=== PATIENT | male | born 2000 | race Caucasian/White ===

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

== ENCOUNTER → 2021-01-24 19:24 | Outpatient (CLI) | payer BC, MEDICAID, SELFPAY | PROVIDERS: Visit Provider Nurse Practitioner Family | DX: Z20.822 Contact with and (suspected) exposure to COVID-19 (principal) | CPT/HCPCS: C9803; U0003; U0005 ==

== ENCOUNTER 2021-02-08 20:37 | Emergency (ER) | payer MEDICAID, SELFPAY ==
[2021-02-08 20:38] VITALS: BP 131/90; PULSE 80; RESP 16; TEMP 36.8; O2SAT 100; BMI 26.6
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
--- NOTE | 2021-02-08 20:46 | PC.NURSE ---
cleared cervical neck, c collar removed @ this time
[2021-02-08 20:59] VITALS: BP 131/90; PULSE 80; RESP 16; TEMP 36.8; O2SAT 99
== END 2021-02-08 21:01 | disposition home or self-care (01) ==
PROVIDERS: Emergency Provider Emergency Medicine; PCP Emergency Medicine
DX: S16.1XXA Strain of muscle, fascia and tendon at neck level, initial encounter (principal); V47.0XXA Car driver injured in collision with fixed or stationary object in nontraffic accident, initial encounter; Y92.488 Other paved roadways as the place of occurrence of the external cause
CPT/HCPCS: 99282

== ENCOUNTER → 2021-05-08 08:50 | Outpatient (CLI) | payer MEDICAID, SELFPAY ==
[2021-05-09 06:40] LABS: Covid-19 Nasal PCR Sendout Lex NOT DETECTED
== END ==
PROVIDERS: Visit Provider Nurse Practitioner
DX: Z20.822 Contact with and (suspected) exposure to COVID-19 (principal)
CPT/HCPCS: C9803; U0004; U0005

== ENCOUNTER 2021-07-21 17:49 | Emergency (ER) | payer MEDICAID, SELFPAY ==
[2021-07-21 17:50] VITALS: BP 121/76; PULSE 83; RESP 16; TEMP 36.7; O2SAT 98; BMI 28.1
--- NOTE | 2021-07-21 18:56 | HMH.EDALLER ---
ED Disposition Clinical Impression: Allergic reaction Qualifiers: Encounter type: initial encounter Qualified Code(s): T78.40XA - Allergy, unspecified, initial encounter Disposition: Home, Self-Care Condition on Discharge: Good Instructions: DI for Eye Allergic Reaction Prescriptions: methylPREDNISolone [Medrol 4mg tab] 4 mg PO DIRECTED #21 tab Transmission Status: Pending to [id number] Referrals: Evgeny Mcgrath MD [Primary Care Provider] - - Critical Care Critical Care Time: No Attestation: On 07/21/21, the high probability of a clinically significant, sudden or life threatening deterioration of the following system(s) required my full and direct attention, intervention and personal management. The time I documented below is in addition to time spent performing reported procedures but includes the following listed in this critical care notation. Medical Decision Making - Medical Records Medical records reviewed: Yes: I reviewed the patient's medical records. - Ilia Inquiry Pt receiving controlled substance: No Vital Signs: 07/21/21 17:50 Temperature 98.0 F Temperature Source Oral Pulse Rate [Right] 83 Respiratory Rate 16 Blood Pressure [Right Arm] 121/76 Blood Pressure Mean [Right Arm] 91 Blood Pressure Source [Right Arm] Automatic Cuff Blood Pressure Position [Right Arm] Sitting 02 Sat by Pulse Oximetry 98 Oxygen Delivery Method Room Air Orders (Tests/Meds): ED MEDICATIONS Generic Name Dose Route Start Last Admin Trade Name Freq PRN Reason Stop Dose Admin Sodium Chloride 1,000 mls @ 999 mls/hr 07/21/21 18:15 07/21/21 18:24 Sod Chlor 0.9% 1000ml Bag IV 07/21/21 19:15 999 mls/hr .Q1H1M JOSE R Administration Sodium Chloride 8 ml 07/21/21 18:01 Sodium Chloride 0.9% 10ml Vial IV 08/20/21 18:00 NEEDED PRN dilute pepcid Discontinued Medications Generic Name Dose Route Start Last Admin Trade Name Freq PRN Reason Stop Dose Admin Dexamethasone Sodium Phosphate 10 mg 07/21/21 18:01 07/21/21 18:23 Dexamethasone 4mg/Ml 5ml Mdv IV 07/21/21 18:02 10 mg ONCE ONE Administration Diphenhydramine HCl 25 mg 07/21/21 18:01 07/21/21 18:23 Diphenhydramine 50mg/Ml Vial IV 07/21/21 18:02 25 mg ONCE ONE Administration Famotidine 20 mg 07/21/21 18:01 07/21/21 18:23 Famotidine 20mg/2ml Vial IV 07/21/21 18:02 20 mg ONCE ONE Administration - Reevaluation(s) Time: 18:59 Reevaluation #1: On reevaluation, the patient is feeling much better. There is no evidence of airway compromise. No angioedema. Patient tolerating oral intake. Patient be discharged with short course steroids. He is to follow-up with PCP in 48 hours. Given strict return precautions. Verbalized understanding. Medical Decision Narrative: 21-year-old male presented to the emergency department with some facial swelling. Patient's findings are consistent with allergic conjunctivitis. Patient is some periorbital swelling but is consistent with just edema. There is no evidence of erythema, no preseptal or septal cellulitis. I did perform eye examination which did not show any abnormalities. Eyelid eversion did not show any foreign bodies or abscesses. Patient be treated symptomatically reevaluated. Allergic React/Insect Bite HPI - General Chief complaint: Allergic Reaction Stated complaint: possible allergic reaction Time Seen by Provider: 07/21/21 17:55 Mode of Arrival - ED Triage: Ambulatory Limitations: No Limitations - History of Present Illness HPI narrative: 21-year-old male presented to the emergency department possible allergic reaction. The patient states that he was out fishing yesterday when he started getting some fullness in his face. He states that he woke up today and had some swelling around his eyes. He states that his eyelids are mildly swollen. He feels like his eyes are red. Is not having any change in vision, however th
[2021-07-21 19:00] VITALS: BP 111/64; PULSE 55; O2SAT 99
[2021-07-21 19:04] VITALS: BP 111/64; PULSE 70; RESP 16; O2SAT 99
--- NOTE | 2021-07-21 19:04 | PC.NURSE ---
Assessed pt at this time. Advising he was feeling better. No new needs at this time.
[2021-07-21 19:12] VITALS: BP 119/78; PULSE 70; RESP 16; TEMP 36.8; O2SAT 98
== END 2021-07-21 19:57 | disposition home or self-care (01) ==
PROVIDERS: Emergency Provider Emergency Medicine; PCP Emergency Medicine
DX: T78.40XA Allergy, unspecified, initial encounter (principal); H10.33 Unspecified acute conjunctivitis, bilateral; F41.9 Anxiety disorder, unspecified; J45.909 Unspecified asthma, uncomplicated
CPT/HCPCS: 96365; 96375; 99284

== ENCOUNTER 2021-11-23 13:47 | Emergency (ER) | payer MEDICAID, SELFPAY ==
[2021-11-23 14:09] VITALS: BP 143/80; PULSE 57; RESP 18; TEMP 36.9; O2SAT 100; BMI 28.2
--- NOTE | 2021-11-23 14:29 | HMH.EDUTC ---
[facility] Disposition Clinical Impression: Parotiditis, Jaw pain Disposition: Home, Self-Care Condition on Discharge: Good Instructions: Parotitis, DI for Parotitis-Adult Additional Instructions: Drink plenty of fluids. Take tylenol or ibuprofen for pain or fever. Take the medications as directed. Follow up with your regular doctor. GO TO THE ER FOR ANY WORSENING SYMPTOMS Prescriptions: Amoxicillin/Potassium Clav [Amox-Clav 875-125 mg Tablet] 1 tab PO BID #20 tab Transmission Status: Received by [id number] methylPREDNISolone [Medrol] 4 mg PO DIRECTED 6 Days #21 packet Transmission Status: Received by [id number] Referrals: Evgeny Mcgrath MD [Primary Care Provider] - Forms: Work/School Release Time of Disposition: 14:44 Medical Decision Making - Medical Records Medical records reviewed: No: I reviewed the patient's medical records. - Ilia Inquiry Pt receiving controlled substance: No Vital Signs: 11/23/21 14:09 11/23/21 14:31 11/23/21 14:49 Temperature 98.5 F 98.5 F 98.5 F Temperature Source Oral Oral Pulse Rate 60 Pulse Rate [Left Radial] 57 L 60 Respiratory Rate 18 18 18 Blood Pressure 143/80 H Blood Pressure [Left Arm] 143/80 H 143/80 H Blood Pressure Mean [Left Arm] 101 101 Blood Pressure Source [Left Arm] Automatic Cuff Blood Pressure Position [Left Arm] Sitting 02 Sat by Pulse Oximetry 100 100 Oxygen Delivery Method Room Air - Lab Data Lab results reviewed: Yes: I reviewed the patient's lab results. [facility] HPI - General Stated complaint: LT Jaw Pain Time Seen by Provider: 11/23/21 14:29 Mode of Arrival: Ambulatory Source of Information: Patient Limitations: No Limitations Description of Symptoms (Recalled from Triage Doc. by RN): Pt c/o L jaw pain x2 days. Pt states no known injury. Pt reports pain in up near his ear in jaw area. Pt denies dental pain. - History of Present Illness Provider Complaint: He states that for the past 2 days he has had left jaw pain. He denies that he has had any dental pain. He has a sore throat and he has felt bad also, but he denies any fever or chills. - Related Data Previous Rx's Medication Instructions Recorded venlafaxine 75 mg capsule,extended 75 mg PO DAILY #30 cap 11/01/20 release 24 hr ondansetron 4 mg disintegrating 4 mg PO Q6H PRN #30 tab 01/24/21 tablet methylPREDNISolone [Medrol 4mg 4 mg PO DIRECTED #21 tab 07/21/21 tab] Amoxicillin/Potassium Clav 1 tab PO BID #20 tab 11/23/21 [Amox-Clav 875-125 mg Tablet] methylPREDNISolone [Medrol] 4 mg PO DIRECTED 6 Days #21 11/23/21 packet Allergies Allergy/AdvReac Type Severity Reaction Status Date / Time No Known Allergies Allergy Verified 11/23/21 14:34 [facility] History - Hepatitis A Screen Attestation statement:: This patient has been screened for Hepatitis A risk factors. I have reviewed the patient's past medical history: Yes Medical History: Reports:: Anxiety, Asthma Denies:: Diabetes Mellitus Type 1, Diabetes Mellitus Type 2 Laterality Cases: Bilateral: Myringotomy (Ear Tubes), Tonsillectomy, Other Other Surgeries: Yes: No Previous Surgery, Other Amputation: No Fractures: Yes Comment: Wrist left with screw. - Social History Smoking Status: Never smoker Tobacco Type: cigarettes, smokeless tobacco Alcohol Intake: never Alcohol Intake Frequency:: other Substance Use Type: denies use Occupational Status: other Housing: house Household Members: family - Psychiatric History Pschychiatric History:: Reports:: Anxiety Family Hx:: Cancer ROS Obtained: Yes All systems reviewed & no additional complaints - Constitutional Constitutional: Denies chills, Denies fever(s), Reports poor appetite, Reports malaise - Eyes Eyes: Denies eye discharge - ENT Ears, Nose, Mouth, and Throat: Reports as per HPI - Cardiovascular Cardiovascular: Denies chest pain - Respiratory Respiratory: Den
[2021-11-23 14:31] VITALS: BP 143/80; PULSE 60; RESP 18; TEMP 36.9; O2SAT 100; BMI 28.1
[2021-11-23 14:49] VITALS: BP 143/80; PULSE 60; RESP 18; TEMP 36.9
== END 2021-11-23 14:56 | disposition home or self-care (01) ==
PROVIDERS: Emergency Provider Nurse Practitioner Family; PCP Emergency Medicine
DX: K11.21 Acute sialoadenitis (principal)

== ENCOUNTER 2021-12-04 02:38 | Emergency (ER) | payer MEDICAID, SELFPAY ==
[2021-12-04 02:41] VITALS: BP 139/78; PULSE 89; RESP 16; TEMP 38.8; O2SAT 99; BMI 27.3
[2021-12-04 02:43] VITALS: BMI 27.4
[2021-12-04 03:03] LABS: Influenza A, PCR Not Detected (NotDetected); Influenza B, PCR Not Detected (NotDetected); Microscopic, Urine URINE MICROSCOPIC (MICROSCOPIC)
[2021-12-04 03:04] LABS: Basophils # 0.1 K/mm3 (0-0.2); Basophils % 1.7 % (0.1-2.0); Eosinophils # 0.1 K/mm3 (0.0-0.4); Eosinophils % 1.6 % (0.1-12.0); Hematocrit 46.4 % (42.0-52.0); Hemoglobin 15.3 g/dL (14.1-18.0); Lymphocytes # 0.9 K/mm3 (0.7-4.5); Lymphocytes % 18.4 % (10-50); Mean Corpuscular HGB Conc 32.9 g/dL (31.8-35.4); Mean Corpuscular Hemoglobin 27.4 pg (27.0-31.2); Mean Corpuscular Volume 83.3 fl (80-94); Mean Platelet Volume 9.3 fl (7.4-10.4); Monocytes # 0.3 K/mm3 (0.1-1.0); Monocytes % 6.5 % (1.7-9.3); Neutrophils # 3.3 K/mm3 (1.8-7.8); Neutrophils % 71.8 % (37.0-80.0); Platelet Count 158 K/mm3 (142-424); Red Blood Count 5.57 M/mm3 (4.60-6.20); Red Cell Distribution Width 13.5 % (11.5-17.5); White Blood Count 4.6 K/mm3 (4.5-13.0)
[2021-12-04 03:09] LABS: Appearance,Urine CLEAR (Clear); Bilirubin,Urine Negative (Negative); Blood, Urine TRACE-L (Negative); Color,Urine YELLOW (Yellow); Glucose,Urine (UA) Negative (Negative); Ketones,Urine Negative (Negative); Leukocyte Esterase,Urine Negative (Negative); Nitrate,Urine Negative (Negative); Protein,Urine TRACE (Negative); Specific Gravity, Urine 1.025 (1.005-1.030); Urobilinogen,Urine 0.2 EU/dl (0.2)
[2021-12-04 03:11] LABS: Amorphous Sediment,Urine Trace /lpf; Squamous Epithelial Cell,Urine Occasional #/hpf (0-5)
[2021-12-04 03:15] LABS: Amylase 68 U/L (30-110)
[2021-12-04 03:16] LABS: Alanine Aminotransferase 26 U/L (12-78); Albumin Level 4.1 g/dl (3.5-5.0); Albumin/Globulin Ratio 1.6 (1.1-1.8); Alkaline Phosphatase 46 U/L (38-126); Aspartate Amino Transferase 32 U/L (17-59); Bilirubin,Total 0.2 mg/dl (0.2-1.3); Blood Urea Nitrogen 11 mg/dl (9-20); Calcium 8.6 mg/dl (8.4-10.2); Carbon Dioxide 24 mmol/L (22.0-30.0); Chloride 106 mmol/L (98-107); Creatinine Clearance Estimated 101 mL/min (50-200); Estimated Glomerular Filt Rate 77 ml/min (>60); GFR (African American) 93 ML/MIN (>60); Globulin 2.5 g/dL (1.3-3.2); Glucose 136 mg/dl (74-100); Lactic Acid 0.8 mmol/L (0.7-2.1); Lipase 194 U/L (23-300); Sodium 138 mmol/L (136-145); Total Protein,Serum 6.6 g/dl (6.3-8.2)
[2021-12-04 03:21] LABS: C-Reactive Protein 20.5 mg/L (0-4)
[2021-12-04 03:23] LABS: Anion Gap 11.5 mEq/L (5-15); Potassium 3.5 mmoL/L (3.5-5.1)
[2021-12-04 03:34] LABS: Procalcitonin 0.115 ng/mL (0.0-2.0)
[2021-12-04 03:35] LABS: Coronavirus 19, PCR Detected (NotDetected); Erythrocyte Sedimentation Rate 1 mm/hr (0-15)
[2021-12-04 03:50] VITALS: PULSE 92; RESP 16; TEMP 37.7; O2SAT 97
--- NOTE | 2021-12-04 03:55 | XR_ITS ---
PROCEDURE INFORMATION: Exam: XR Chest Exam date and time: 12/04/2021 4:03 AM Age: 21 years old Clinical indication: Sternal or substernal pain; Additional info: Chest pain TECHNIQUE: Imaging protocol: Radiologic exam of the chest. Views: 2 views. COMPARISON: CR CXR2V XR chest 2V 11/22/2017 9:19 AM FINDINGS: Lungs: Unremarkable. No consolidation. Pleural spaces: Unremarkable. No pleural effusion. No pneumothorax. Heart/Mediastinum: Unremarkable. No cardiomegaly. Bones/joints: Unremarkable. IMPRESSION: No acute findings.
--- NOTE | 2021-12-04 04:05 | PC.NURSE ---
pt's temperature has decreased to 99.0 orally. However, he now has developed cough and would like that checked out. CXR ordered.
--- NOTE | 2021-12-04 04:11 | HMH.EDURI ---
Discharge Plan Disposition Patient Disposition: Home, Self-Care Condition: Good Chief Complaint: Upper Respiratory Infection Prescriptions Prescriptions: No Action No Known Home Medications Referrals Follow up/Referrals: Evgeny Mcgrath MD [Primary Care Provider] - See instructions Clinical Impressions Clinical Impression: COVID-19 Instructions Patient Instructions: DI for COVID-19 (Suspected or Confirmed ) Discharge ED Provider: Evgeny Mcgrath URI/Sore Throat HPI General Chief Complaint: Upper Respiratory Infection Stated Complaint: MCBRIDE,Vomiting,disorinated Time Seen by Provider: 12/04/21 04:11 Mode of Arrival: Ambulatory Source of Information: Patient and Medical Record Limitations: No Limitations Description of Symptoms (Recalled from ER Triage Doc. by RN): PT STATES HE HAS BEEN IN [place] AND CAME BACK AND STARTED FEELING BAD, WITH FEVER, GENERALIZED ACHES AND HEADACHE. PT HAS NOT TAKEN TYLENOL OR MOTRIN SINCE YESTERDAY AT 1600 History of Present Illness HPI Narrative: aching and fever with headache since yesterday Complaint: cough and sore throat Onset (ago): day(s) Duration: constant Severity: moderate Associated symptoms: denies other symptoms Treatments prior to arrival: acetaminophen Related Data Home Medications Medication Instructions Recorded Confirmed No Known Home Medications 12/04/21 12/04/21 Allergies Allergy/AdvReac Type Severity Reaction Status Date / Time No Known Allergies Allergy Verified 11/23/21 14:34 PFSH PFSH Social History Smoking Status: Never smoker alcohol intake: never substance use type: denies use current occupational status: other household members: family housing: house ROS Obtained: Yes All systems reviewed & no additional complaints except as documented Physical Exam General General appearance: alert Head Head exam: normocephalic Eye Eye exam: Present PERRL and EOMI ENT ENT exam: Present normal exam Neck Neck exam: Present full ROM Respiratory Respiratory exam: Present normal lung sounds bilaterally Cardiovascular Cardiovascular exam: Present regular rate Abdominal Exam Abdominal exam: Present soft Extremities Exam Extremities exam: Present full ROM Neurological Exam Neurological exam: Present alert, oriented X3 and CN II-XII intact Psychiatric Psychiatric exam: Present normal affect Skin Skin exam: Absent rash Medical Decision Making Medical Records Medical records reviewed: Yes I reviewed the patient's medical records. Ilia Inquiry Pt receiving controlled substance: No Vital Signs: 12/04/21 02:41 12/04/21 03:50 12/04/21 04:16 Temperature 101.8 F H 99.8 F H Temperature Source Oral Oral Pulse Rate 92 H 67 Pulse Rate [Left Radial] 89 Respiratory Rate 16 16 Blood Pressure 122/76 Blood Pressure [Right Arm] 139/78 Blood Pressure Mean 86 Blood Pressure Mean [Right Arm] 98 Blood Pressure Source [Right Arm] Automatic Cuff Blood Pressure Position [Right Arm] Sitting 02 Sat by Pulse Oximetry 99 97 97 Oxygen Delivery Method Room Air Room Air Room Air 12/04/21 04:45 Temperature Temperature Source Pulse Rate 59 L Pulse Rate [Left Radial] Respiratory Rate Blood Pressure 121/68 Blood Pressure [Right Arm] Blood Pressure Mean Blood Pressure Mean [Right Arm] Blood Pressure Source [Right Arm] Blood Pressure Position [Right Arm] 02 Sat by Pulse Oximetry 98 Oxygen Delivery Method Room Air Lab Data Lab results reviewed: Yes I reviewed the patient's lab results. Lab Results 12/04/21 02:43: ESR 1 12/04/21 02:43: C-Reactive Protein 20.5 H, Amylase 68, Procalcitonin 0.115 12/04/21 02:43: SARS-CoV-2 (PCR) Detected A, Influenza A Untype (PCR) Not detected, Influenza Type B (PCR) Not detected 12/04/21 02:43: Urine Color Yellow, Urine Appearance Clear, Urine pH 6.0, Ur Specific Brantley 1.025, Urine Protein Trace, Urine Glucose (UA) Negative, Urine Ketones Negative
[2021-12-04 04:16] VITALS: BP 122/76; PULSE 67; O2SAT 97
[2021-12-04 04:45] VITALS: BP 121/68; PULSE 59; O2SAT 98
[2021-12-04 05:00] VITALS: BP 121/68; PULSE 88; RESP 16; TEMP 37.3; O2SAT 100
== END 2021-12-04 05:12 | disposition home or self-care (01) ==
PROVIDERS: Emergency Provider Emergency Medicine; PCP Emergency Medicine
DX: U07.1 COVID-19 (principal)
CPT/HCPCS: 71046; 80053; 81001; 82150; 83605; 83690; 84145; 85025; 85651; 86140; 96361; 96374; 96375; 99283; C9803; J2405; U0003; U0005

== ENCOUNTER → 2021-12-26 06:39 | Outpatient (CLI) | payer MEDICAID, SELFPAY ==
[2021-12-26 20:42] LABS: Basophils # 0.1 K/mm3 (0-0.2); Basophils % 2.6 % (0.1-2.0); Eosinophils # 0.1 K/mm3 (0.0-0.4); Eosinophils % 1.6 % (0.1-12.0); Hematocrit 43.8 % (42.0-52.0); Hemoglobin 14.2 g/dL (14.1-18.0); Lymphocytes # 1.6 K/mm3 (0.7-4.5); Lymphocytes % 29.1 % (10-50); Mean Corpuscular HGB Conc 32.5 g/dL (31.8-35.4); Mean Corpuscular Hemoglobin 27.1 pg (27.0-31.2); Mean Corpuscular Volume 83.3 fl (80-94); Mean Platelet Volume 20.7 fl (7.4-10.4); Monocytes # 0.4 K/mm3 (0.1-1.0); Monocytes % 6.5 % (1.7-9.3); Neutrophils # 3.4 K/mm3 (1.8-7.8); Neutrophils % 62.8 % (37.0-80.0); Platelet Count 225 K/mm3 (142-424); Red Blood Count 5.26 M/mm3 (4.60-6.20); White Blood Count 5.5 K/mm3 (4.5-13.0)
[2021-12-26 22:10] LABS: Alanine Aminotransferase 37 U/L (12-78); Albumin Level 4.2 g/dl (3.5-5.0); Albumin/Globulin Ratio 1.8 (1.1-1.8); Alkaline Phosphatase 54 U/L (38-126); Anion Gap 13.2 mEq/L (5-15); Aspartate Amino Transferase 31 U/L (17-59); Blood Urea Nitrogen 9 mg/dl (9-20); Calcium 8.7 mg/dl (8.4-10.2); Carbon Dioxide 30 mmol/L (22.0-30.0); Chloride 103 mmol/L (98-107); Chol/HDL Ratio 5.1 (1-3.5); Cholesterol 142 mg/dl (140-200); Estimated Glomerular Filt Rate 85 ml/min (>60); GFR (African American) 103 ML/MIN (>60); Globulin 2.3 g/dL (1.3-3.2); Glucose 84 mg/dl (74-100); HDL Cholesterol 28 mg/dl (40-60); Potassium 4.2 mmoL/L (3.5-5.1); Sodium 142 mmol/L (136-145); Total Protein,Serum 6.5 g/dl (6.3-8.2); Triglycerides 144 mg/dl (30-150); VLDL Cholesterol 29 mg/dL (0-40)
[2021-12-26 22:12] LABS: Bilirubin,Total 0.1 mg/dl (0.2-1.3)
== END ==
PROVIDERS: PCP Family Medicine; Visit Provider Family Medicine
DX: R69 Illness, unspecified (principal)
CPT/HCPCS: 80053; 80061; 85025

== ENCOUNTER 2022-07-23 11:45 | Emergency (ER) | payer BC, MEDICAID, SELFPAY ==
[2022-07-23 11:46] VITALS: BP 138/88; PULSE 64; RESP 16; TEMP 36.6; O2SAT 97; BMI 26.6
[2022-07-23 11:57] VITALS: BP 138/77; PULSE 54; O2SAT 100
--- NOTE | 2022-07-23 12:00 | XR_ITS ---
FINAL REPORT CLINICAL HISTORY: fall, right wrist pain FINDINGS: RIGHT WRIST Two views were obtained. There is no acute fracture or dislocation. The joint spaces appear normal. No soft tissue abnormality is identified. IMPRESSION: No acute process. Reviewed, Interpreted and Dictated by Bassam Ayesr III, MD Transcribed by Katherine Gama Authenticated and [facility]
--- NOTE | 2022-07-23 12:00 | XR_ITS ---
FINAL REPORT CLINICAL HISTORY: fall, right hand pain FINDINGS: RIGHT HAND Three views demonstrate no acute fracture or dislocation. The visualized joint spaces are normally aligned. The soft tissues are unremarkable. IMPRESSION: No acute bony abnormality. Reviewed, Interpreted and Dictated by Bassam Ayers III, MD Transcribed by Katherine Gama Authenticated and . [facility]
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
[2022-07-23 13:45] VITALS: BP 132/70; PULSE 60; RESP 18; TEMP 36.7; O2SAT 99
== END 2022-07-23 13:50 | disposition home or self-care (01) ==
PROVIDERS: Emergency Provider Emergency Medicine; PCP Emergency Medicine
DX: S63.501A Unspecified sprain of right wrist, initial encounter (principal); S60.221A Contusion of right hand, initial encounter; X58.XXXA Exposure to other specified factors, initial encounter; F17.290 Nicotine dependence, other tobacco product, uncomplicated
CPT/HCPCS: 73100; 73130; 99283; 99284

== ENCOUNTER 2022-12-10 06:23 | Emergency (ER) | payer SELFPAY ==
[2022-12-10 06:26] VITALS: BP 115/79; PULSE 67; RESP 16; TEMP 36.7; O2SAT 100; BMI 29.0
--- NOTE | 2022-12-10 06:44 | HMH.EDGENADL ---
Discharge Plan Disposition Patient Disposition: Home, Self-Care Condition: Good Prescriptions Prescriptions: New prednisone 50 mg tablet 50 mg PO DAILY 5 Days Qty: 5 0RF hydroxyzine pamoate [Vistaril] 25 mg capsule 25 mg PO TID PRN (Reason: itching) Qty: 20 0RF No Action No Known Home Medications Referrals Follow up/Referrals: Evgeny Mcgrath MD [Primary Care Provider] - See instructions Activity Restrictions/Add. Instructions Additional Instructions/Restrictions: Please follow-up with your primary care provider. Please return to the emergency department if you develop any new or worsening symptoms or become concerned for your health. Please take steroids as prescribed starting tomorrow. You were given today's dose in ER. Please take Vistaril as needed for itching. Recommend following up with a desizing machine operator head end if possible. Please return if you develop shortness of breath or throat swelling. Clinical Impressions Clinical Impression: Acute idiopathic urticaria, Facial swelling Discharge ED Provider: Jose A Gomez Adult HPI General Chief complaint: Allergic Reaction Stated complaint: Allergic reaction does not know what to Time Seen by Provider: 12/10/22 06:35 Mode of Arrival: Ambulatory Source of Information: Patient Limitations: No Limitations Description of Symptoms (Recalled from ER Triage Doc. by RN): 22 M presents from home after waking up with worsening periorbital edema. States he woke up 9/3 with swelling to his left elbow and a little swelling to his eyes which had been itchy prior to going to bed. Patient denies difficulty breathing, fever, chills. Obvious swelling to bilateral eyes. No angioedema present. Airway patent. Several hives noted to back of upper arms. History of Present Illness HPI narrative: 22 M presents from home after waking up with worsening periorbital edema. States he woke up 9/3 with swelling to his left elbow and a little swelling to his eyes which had been itchy prior to going to bed. Patient denies difficulty breathing, fever, chills. Obvious swelling to bilateral eyes. No angioedema present. Airway patent. Several hives noted to back of upper arms. 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 Reports that this happened once before and it resolved within about a week with steroids. Related Data Home Medications Medication Instructions Recorded Confirmed No Known Home Medications 12/10/22 12/10/22 Previous Rx's Medication Instructions Recorded hydroxyzine pamoate 25 mg capsule 25 mg PO TID PRN itching #20 caps 12/10/22 (Vistaril) prednisone 50 mg tablet 50 mg PO DAILY 5 days #5 tabs 12/10/22 Allergies Allergy/AdvReac Type Severity Reaction Status Date / Time No Known Allergies Allergy Verified 12/26/21 15:12 [facility] Disclaimer: The information contained in this section may have been updated after the patient was seen, as this information can be updated by other users. Medical History (Updated 12/10/22 @ 06:43 by Jose A Gomez MD) No significant past medical history Surgical History (Updated 12/10/22 @ 06:40 by Carlos Alberto Ozuna, RN) No history of previous surgery Family History (Updated 12/10/22 @ 06:40 by Carlos Alberto Ozuna, RN) Other No significant family history Social History Smoking Status: Never smoker alcohol intake: current substance use type: denies use current occupational status: other Travel in the last 8 weeks: Inside the [place] household members: family housing: house ROS Obtained: Yes All systems reviewed & no additional complaints except as documented Physical Exam General General appearance: alert and in no apparent distress Head Head exam: atraumatic and other (Periorbital edema and bilateral cheek and forehead swelling noted) Eye Eye exam:
[2022-12-10 06:49] VITALS: BP 115/69; PULSE 63; RESP 16; TEMP 36.7; O2SAT 99
== END 2022-12-10 06:49 | disposition home or self-care (01) ==
PROVIDERS: Emergency Provider Emergency Medicine; PCP Emergency Medicine
DX: H05.223 Edema of bilateral orbit (principal); L50.9 Urticaria, unspecified
CPT/HCPCS: 99283

== ENCOUNTER 2022-12-11 16:13 | Emergency (ER) | payer SELFPAY ==
[2022-12-11 16:40] VITALS: BP 135/75; PULSE 67; RESP 18; TEMP 36.8; O2SAT 100; BMI 29.7
--- NOTE | 2022-12-11 16:57 | EXP.UTC ---
Discharge Plan Disposition Patient Disposition: Home, Self-Care Condition: Good Prescriptions Prescriptions: New methylprednisolone 4 mg Tablets,Dose Pack 4 mg PO DIRECTED Qty: 21 0RF Discontinued prednisone 50 mg tablet 50 mg PO DAILY 5 Days Qty: 5 0RF hydroxyzine pamoate [Vistaril] 25 mg capsule 25 mg PO TID PRN (Reason: itching) Qty: 20 0RF Referrals Follow up/Referrals: Evgeny Mcgrath MD [Primary Care Provider] - See instructions Activity Restrictions/Add. Instructions Additional Instructions/Restrictions: Try to identify and avoid contact with the offending substance. Don't start the oral steroids until tomorrow. Continue the otc diphenhydramine (benedryl) that you have been taking already. It will make you drowsy, so don't drive or operate heavy machinery after taking it. Follow up with your regular doctor. GO TO THE ER FOR ANY WORSENING SYMPTOMS OR CONCERNS If you have already picked up the steroids (prednisone) that was prescribed by the ER, then please don't take them with the steroids (methylprednisone) that we prescribed today. Clinical Impressions Clinical Impression: Acute idiopathic urticaria Stand Alone Forms Stand Alone Forms: Work/School Release Instructions Patient Instructions: DI for General Allergic Reactions, Methylprednisolone, Methylprednisolone Injection Discharge ED Provider: Ean Gomez [facility] General Stated complaint: POSSIBLE ALLERGIC REACTION Time Seen by Provider: 12/11/22 16:57 History of Present Illness Provider Complaint: He states that for the past 3 days he has had swelling of his face around his eyes and an itchy rash on his right forearm. He was in the ER last night for this same complaint, but he did not get the medications from the pharmacy. He denies any swelling of his mouth, lips, or throat. He denies any chest pain or shortness of breath. Related Data Previous Rx's Medication Instructions Recorded methylprednisolone 4 mg tablets in 4 mg PO DIRECTED #21 tabs 12/11/22 a dose pack Allergies Allergy/AdvReac Type Severity Reaction Status Date / Time No Known Allergies Allergy Verified 12/11/22 17:04 [facility] Disclaimer: The information contained in this section may have been updated after the patient was seen, as this information can be updated by other users. Medical History (Updated 12/11/22 @ 17:54 by Ean Gomez APRN) No significant past medical history Surgical History No history of previous surgery Family History Other No significant family history Social History Smoking Status: Never smoker alcohol intake: current substance use type: denies use current occupational status: other Travel in the last 8 weeks: Inside the [place] household members: family housing: house ROS Obtained: Yes All systems reviewed & no additional complaints except as documented Constitutional Constitutional: Denies chills and Denies fever(s) Eyes Eyes: Denies eye discharge ENT Ears, Nose, Mouth, and Throat: Denies dizziness, Denies otalgia and Denies sore throat Cardiovascular Cardiovascular: Denies chest pain Respiratory Respiratory: Denies shortness of breath, Denies chest congestion, Denies cough, Denies stridor and Denies wheezing Gastrointestinal Gastrointestingal: Denies nausea or vomiting Musculoskeletal Musculoskeletal: Reports system reviewed and no additional complaints, except as documented and Denies arthralgias Integumentary/Breasts Skin/Breast: Reports as per HPI and Reports rash Neurologic Neurologic: Denies dizziness and Denies paresthesias Allergic/Immunologic Allergic/Immunologic: Denies wheezing Physical Exam General General appearance: alert and in no apparent distress Head Head exam: atraumatic, normocephal
[2022-12-11 18:02] VITALS: BP 135/75; PULSE 67; RESP 18; TEMP 36.8; O2SAT 100
== END 2022-12-11 18:02 | disposition home or self-care (01) ==
PROVIDERS: Emergency Provider Nurse Practitioner Family; PCP Emergency Medicine
DX: L50.1 Idiopathic urticaria (principal)
CPT/HCPCS: 96372; 99212; 99214; G0463

== ENCOUNTER 2023-05-28 13:09 | Emergency (ER) | payer SELFPAY ==
[2023-05-28 13:50] VITALS: PULSE 78; RESP 12; TEMP 36.8; O2SAT 96; BMI 29.7
--- NOTE | 2023-05-28 14:16 | ED_ITS ---
Discharge Plan Disposition Patient Disposition: Home, Self-Care Condition: Good Prescriptions Prescriptions: New ibuprofen [IBU] 800 mg tablet 800 mg PO Q8HP PRN (Reason: Moderate Pain) Qty: 30 0RF [id number]-[id number] [Bromfed DM] 2-30-10 mg/5 mL Syrup 5 ml PO Q6H PRN (Reason: Cough) Qty: 240 0RF ondansetron 4 mg Tablet,Disintegrating 4 mg PO Q8H PRN (Reason: Nausea) Qty: 12 0RF Referrals Follow up/Referrals: Joe Mtz DO [Primary Care Provider] - See instructions Activity Restrictions/Add. Instructions Additional Instructions/Restrictions: Drink plenty of fluids. Take tylenol or ibuprofen for pain or fever. Take the medications as directed. Follow up with your regular doctor. GO TO THE ER FOR ANY WORSENING SYMPTOMS Clinical Impressions Clinical Impression: Acute viral syndrome Stand Alone Forms Stand Alone Forms: Work/School Release Instructions Patient Instructions: DI for Viral Syndrome Discharge ED Provider: Ean Gomez [facility] General Stated complaint: sore throat, vomitting,headache Mode of Arrival: Ambulatory Source of Information: Patient Limitations: No Limitations Time Seen by Provider: 05/28/23 14:15 Description of Symptoms (Recalled from Triage Doc. by RN): Pt's symptoms are MCBRIDE, chills, fever, sore throat, nausea, and vomiting. HEENT Symptoms (Recalled from RN notes): Yes Resp Symptoms (Recalled from RN notes): No Skin Symptoms (Recalled from RN notes): No MS Symptoms (Recalled from RN notes): No Functional Status (Recalled from RN notes): n/a History of Present Illness Provider Complaint: He states that he has had MCBRIDE, chills, fever, sore throat, nausea, and vomiting for the past 1 day. Related Data Previous Rx's Medication Instructions Recorded qayoyutchubyftk-mqfhmmwysayeobk-HH 5 ml PO Q6H PRN Cough #240 mL 05/28/23 2 mg-30 mg-10 mg/5 mL oral syrup (Bromfed DM) ibuprofen 800 mg tablet (IBU) 800 mg PO Q8HP PRN Moderate Pain 05/28/23 #30 tabs ondansetron 4 mg disintegrating 4 mg PO Q8H PRN Nausea #12 tabs 05/28/23 tablet Allergies Allergy/AdvReac Type Severity Reaction Status Date / Time No Known Allergies Allergy Verified 05/28/23 14:07 Worker's Comp Is this a Worker's Comp case?: No [facility] Disclaimer: The information contained in this section may have been updated after the patient was seen, as this information can be updated by other users. Medical History (Updated 05/28/23 @ 14:33 by Ean Gomez APRN) No significant past medical history Surgical History No history of previous surgery Family History Other No significant family history Social History Smoking Status: Never smoker alcohol intake: current substance use type: denies use current occupational status: other Travel in the last 8 weeks: Inside the [place] household members: family housing: house ROS Obtained: Yes All systems reviewed & no additional complaints except as documented Constitutional Constitutional: Reports chills and Reports fever(s) Eyes Eyes: Denies eye discharge ENT Ears, Nose, Mouth, and Throat: Reports as per HPI Cardiovascular Cardiovascular: Denies chest pain Respiratory Respiratory: Denies chest congestion and Reports cough Gastrointestinal Gastrointestingal: Reports nausea; Denies abdominal pain, constipation, cramping, diarrhea or vomiting Musculoskeletal Musculoskeletal: Denies arthralgias Integumentary/Breasts Skin/Breast: Denies rash Neurologic Neurologic: Denies paresthesias Physical Exam General General appearance: alert and in no apparent distress Eye Eye exam: Present normal appearance, PERRL and EOMI ENT ENT exam: Present mucous membranes moist and normal external ear exam Expanded ENT Exam External ear exam: Present normal external inspection TM/Canal exam: Bilateral TM: erythema and bulging Nose exam: Absent sinus tenderness Nasal speculum exam: Bilateral: normal Mouth exam: Present normal external inspection; Absent drooling Teeth exam: Present normal inspection Throat exam: Present tonsillar erythema and tonsillomegaly Neck Neck exam: Present normal inspection, full ROM and trachea midline; Absent tenderness, lymphadenopathy or thyromegaly Chest Chest inspection: Present normal inspection and symmetric chest wall rise; Absent tenderness or rash Respiratory Respiratory exam: Present normal lung sounds bilaterally; Absent respiratory distress, wheezes, stridor or accessory muscle use Cardiovascular Cardiovascular exam: Present regular rate, normal rhythm and normal heart sounds Abdominal Exam Abdominal exam: Present soft; Absent distention, tenderness, guarding, rebound or rigidity Extremities Exam Extremities exam: Present normal inspection, full ROM and normal capillary refill; Absent tenderness or calf tenderness Back Exam Back exam: Present normal inspection and full ROM; Absent tenderness Neurological Exam Neurological exam: Present alert and oriented X3 Psychiatric Psychiatric exam: Present normal affect and normal mood Skin Skin exam: Present warm, dry, intact and normal color Lymphatic Lymphatic Findings: no adenopathy Medical Decision Making Medical Records Medical records reviewed: No I reviewed the patient's medical records. Ilia Inquiry Pt receiving controlled substance: No Vital Signs: 05/28/23 13:50 Temperature 98.3 F Temperature Source Oral Pulse Rate [Right Radial] 78 Respiratory Rate 12 02 Sat by Pulse Oximetry 96 Oxygen Delivery Method Room Air Lab Data Lab results reviewed: Yes I reviewed the patient's lab results.
[2023-05-28 14:36] LABS: UTC Influenza A Antigen Negative (Negative); UTC Strep Screen (Rapid) Negative (Negative)
[2023-05-28 14:37] LABS: UTC Influenza B Antigen Negative (Negative)
[2023-05-28 14:38] LABS: Coronavirus 19, PCR Not Detected (NotDetected); Influenza A, PCR Not Detected (NotDetected); Influenza B, PCR Not Detected (NotDetected)
[2023-05-28 14:53] VITALS: BP 0/0; PULSE 78; RESP 12; TEMP 36.8; O2SAT 96
== END 2023-05-28 14:53 | disposition home or self-care (01) ==
PROVIDERS: Emergency Provider Nurse Practitioner Family; PCP Internal Medicine
DX: R51.9 Headache, unspecified (principal); R11.2 Nausea with vomiting, unspecified; R07.0 Pain in throat; R50.9 Fever, unspecified; B34.9 Viral infection, unspecified
CPT/HCPCS: 87636; 87804; 87880; 99212; 99214; G0463

== ENCOUNTER 2023-07-29 08:42 | Emergency (ER) | payer SELFPAY ==
[2023-07-29 09:25] VITALS: BP 126/70; PULSE 58; RESP 20; TEMP 36.8; O2SAT 100; BMI 29.4
[2023-07-29 09:39] LABS: UTC Strep Screen (Rapid) Negative (Negative)
--- NOTE | 2023-07-29 09:49 | EXP.UTC ---
Discharge Plan Disposition Patient Disposition: Home, Self-Care Condition: Good Prescriptions Prescriptions: New ondansetron 4 mg tablet,disintegrating 4 mg PO Q8H PRN (Reason: nausea and vomiting) Qty: 12 0RF No Action ibuprofen [IBU] 800 mg tablet 800 mg PO Q8HP PRN (Reason: Moderate Pain) Qty: 30 0RF ylayurveousciux-zjivyglhl-WB [Bromfed DM] 2-30-10 mg/5 mL Syrup 5 ml PO Q6H PRN (Reason: Cough) Qty: 240 0RF ondansetron 4 mg Tablet,Disintegrating 4 mg PO Q8H PRN (Reason: Nausea) Qty: 12 0RF Referrals Follow up/Referrals: Joe Mtz DO [Primary Care Provider] - See instructions Activity Restrictions/Add. Instructions Additional Instructions/Restrictions: Drink extra fluids with and between meals. If you have difficulty drinking, try very small amounts of water or suck on ice chips. ? Avoid fruit juices, as these do not replace minerals and can actually increase diarrhea. ? Children and adults can use sports drinks to replenish electrolytes. Younger children and infants should use products formulated for children, like oral rehydration solutions. ? Eat food in small amounts and let your stomach recover. ? Get lots of rest. You may feel tired or weak. ? No greasy or fried foods for the next 24-48 hours BRAT diet Bananas Rice Apples and Tarina ? Make sure to drink plenty of liquids ? Return if needed ? Straight to ER if any life threatening symptoms ? Zofran as prescribed ? Follow up with family doctor in the next 48-72 hours if no improvement or any worsening of symptoms Clinical Impressions Clinical Impression: Nausea and vomiting Stand Alone Forms Stand Alone Forms: Work/School Release Instructions Patient Instructions: Nausea and Vomiting-Adult, Sore Throat Discharge ED Provider: Karen Israel [facility] General Stated complaint: vomiting Mode of Arrival: Ambulatory Source of Information: Patient Limitations: No Limitations Time Seen by Provider: 07/29/23 09:49 Description of Symptoms (Recalled from Triage Doc. by RN): PATIENT C/O VOMITING, SORE THROAT AND HEADACHE THAT STARTED THIS MORNING HEENT Symptoms (Recalled from RN notes): Yes Resp Symptoms (Recalled from RN notes): No Skin Symptoms (Recalled from RN notes): No MS Symptoms (Recalled from RN notes): No Functional Status (Recalled from RN notes): WNL History of Present Illness Provider Complaint: Patient states that he was around sister last week that had a stomach bug States he woke up this morning with N/V sore throat and a slight headache States wasnt sure if he may have had strep or he caught her stomach bug Related Data Previous Rx's Medication Instructions Recorded nfvfxqwuvsopjbi-qcoztzduyvftowg-PQ 5 ml PO Q6H PRN Cough #240 mL 05/28/23 2 mg-30 mg-10 mg/5 mL oral syrup (Bromfed DM) ibuprofen 800 mg tablet (IBU) 800 mg PO Q8HP PRN Moderate Pain 05/28/23 #30 tabs ondansetron 4 mg disintegrating 4 mg PO Q8H PRN Nausea #12 tabs 05/28/23 tablet ondansetron 4 mg disintegrating 4 mg PO Q8H PRN nausea and 07/29/23 tablet vomiting #12 tabs Allergies Allergy/AdvReac Type Severity Reaction Status Date / Time No Known Allergies Allergy Verified 05/28/23 14:07 Worker's Comp Is this a Worker's Comp case?: No [facility] Disclaimer: The information contained in this section may have been updated after the patient was seen, as this information can be updated by other users. Medical History (Updated 07/29/23 @ 09:53 by Karen Israel APRN) Asthma Surgical History (Updated 07/29/23 @ 09:37 by Jazmyn Muhammad RN) H/O left wrist surgery History of tympanostomy tube placement History of tonsillectomy Family History Other No significant family history Social History Smoking Status: Never smoker alcohol intake: current substance use type: denies use current occupational status: other Travel in the last 8 weeks: [place] the [place] household members: family housing: house ROS Obtained: Yes All systems reviewed & no additional complaints except as documented and Yes Systems reviewed as appropriate & no additional complaints except as documented Constitutional Constitutional: Reports system reviewed and no additional complaints, except as documented, Reports as per HPI and Reports headache(s) ENT Ears, Nose, Mouth, and Throat: Reports system reviewed and no additional complaints, except as documented, Reports as per HPI, Reports headache(s) and Reports sore throat Cardiovascular Cardiovascular: Reports system reviewed and no additional complaints, except as documented and Reports as per HPI Respiratory Respiratory: Reports system reviewed and no additional complaints, except as documented and Reports as per HPI Gastrointestinal Gastrointestingal: Reports system reviewed and no additional complaints, except as documented, as per HPI, diarrhea (x 1), nausea and vomiting; Denies abdominal pain Neurologic Neurologic: Reports headache(s) Physical Exam General General appearance: alert and in no apparent distress ENT ENT exam: Present mucous membranes moist Expanded ENT Exam Throat exam: Present normal inspection Respiratory Respiratory exam: Present normal lung sounds bilaterally; Absent respiratory distress or wheezes Cardiovascular Cardiovascular exam: Present regular rate, normal rhythm and normal heart sounds Abdominal Exam Abdominal exam: Present soft and normal bowel sounds; Absent distention or tenderness Neurological Exam Neurological exam: Present alert, oriented X3 and normal gait Medical Decision Making Ilia Inquiry Pt receiving controlled substance: No Ilia was queried for this patient: No Vital Signs: 07/29/23 09:25 Temperature 98.2 F Temperature Source Oral Pulse Rate [Left Brachial] 58 L Respiratory Rate 20 Blood Pressure [Left Arm] 126/70 Blood Pressure Mean [Left Arm] 88 Blood Pressure Source [Left Arm] Automatic Cuff Blood Pressure Position [Left Arm] Sitting 02 Sat by Pulse Oximetry 100 Oxygen Delivery Method Room Air Lab Data Lab results reviewed: Yes I reviewed the patient's lab results. Lab Results 07/29/23 09:31: Strep Scn Rapid Clinic Negative Orders (Tests/Meds): ORDERS Category Date Time Status Strep Screen Confirmation Stat Micro 07/29/23 09:31 Received
[2023-07-29 09:58] VITALS: BP 126/70; PULSE 58; RESP 20; TEMP 36.8; O2SAT 100
== END 2023-07-29 10:02 | disposition home or self-care (01) ==
PROVIDERS: Emergency Provider Nurse Practitioner; PCP Internal Medicine
DX: R11.2 Nausea with vomiting, unspecified (principal); R51.9 Headache, unspecified
CPT/HCPCS: 87880; 99212; 99214; G0463

== ENCOUNTER 2024-09-14 18:33 | Emergency (ER) | payer OTHER, SELFPAY ==
[2024-09-14 18:42] VITALS: BP 156/92; PULSE 60; RESP 18; TEMP 36.6; O2SAT 100; BMI 28.0
--- OUTSIDE RECORDS SUMMARY | 2024-09-14 18:42 | XMS_ITS | Clinical Summary ---
Author Organization Healthcare Address [address] [place] [address] Care Team Providers Care Forest Resource Specialist Name Role Phone Evgeny Mcgrath MD Primary Care Provider [phone] Social History Tobacco Use Types Packs/Day Years Used Date Smoking Tobacco: Passive Smo ke Exposure - Never Smoker Sex and Gender Information Value Date Recorded Sex Assigned at Not on file Legal Sex Male 6:41 PM EDT Gender Identity Not on file Sexual Orientation Not on file Last Filed Vital Signs Vital Sign Reading Time Taken Comments Blood Pressure - - Pulse - - Temperature - - Respiratory Rate - - Oxygen Saturation - - Inhaled Oxygen Concentration - - Weight 65 kg (143 lb 4.8 oz) 05/24/2015 2:33 PM EST Height 162.5 cm (5' 3.98 ) 05/24/2015 2:33 PM ES T Body Mass Index 24.62 05/24/2015 2:33 PM EST Plan of Treatment Not on file Care Teams Forest Resource Specialist Relationship Specialty Start Date End Date Evgeny Mcgrath MD [id number] [id number] PCP - General 08/19/20
--- NOTE | 2024-09-14 18:45 | ED_ITS ---
Discharge Plan Disposition Patient Disposition: Home, Self-Care Prescriptions Prescriptions: New ondansetron 4 mg tablet,disintegrating 4 mg PO Q8H 7 Days Qty: 21 0RF No Action ibuprofen [IBU] 800 mg tablet 800 mg PO Q8HP PRN (Reason: Moderate Pain) Qty: 30 0RF mvjdreraytnrfev-vnoqixqvr-DZ [Bromfed DM] 2-30-10 mg/5 mL Syrup 5 ml PO Q6H PRN (Reason: Cough) Qty: 240 0RF ondansetron 4 mg Tablet,Disintegrating 4 mg PO Q8H PRN (Reason: Nausea) Qty: 12 0RF ondansetron 4 mg tablet,disintegrating 4 mg PO Q8H PRN (Reason: nausea and vomiting) Qty: 12 0RF Referrals Follow up/Referrals: Joe Mtz DO [Primary Care Provider, Internal Medicine] - See instructions Activity Restrictions/Add. Instructions Additional Instructions/Restrictions: Use the lidocaine to help numb the pain. Take Zofran as needed for nausea. Continue Tylenol and ibuprofen as instructed by your dentist. Call the dentist for further pain if needed. Clinical Impressions Clinical Impression: Toothache Nausea and vomiting Qualifiers: Vomiting type: unspecified Qualified Code(s): R11.2 - Nausea with vomiting, unspecified Instructions Patient Instructions: DI for Dental Pain Print Language Print Language: Indian Discharge ED Provider: Erwin Howard General Adult HPI <Milena Grajeda (ED), CLERK OPERATOR - Last Filed: 09/14/24 19:30> General Chief complaint: Dental/Oral Stated complaint: severe tooth pain Time Seen by Provider: 09/14/24 18:36 History of Present Illness HPI narrative: This is a 24-year-old male who presents to the ED today with complaint of right- sided dental pain. He is going to have dental work done on Saturday. He called his dentist and was told to take Tylenol and ibuprofen which he has been doing. He says that he is nauseated from the tooth pain. No other symptoms. No fevers, chills, vomiting or diarrhea he does have nausea. Related Data Previous Rx's ?Medication ?Instructions ?Recorded toenwdhhvleqfsc-cyozzupetngmqnj-FP 5 ml PO Q6H PRN Cou gh #240 mL 05/28/23 2 mg-30 mg-10 mg/5 mL oral syrup (Bromfed DM) ibuprofen 800 mg tablet (IBU) 800 mg PO Q8HP PRN Moder ate Pain 05/28/23 #30 tabs ondansetron 4 mg disintegrating 4 mg PO Q8H PRN Nausea #12 tabs 05/28/23 tablet ondansetron 4 mg disintegrating 4 mg PO Q8H PRN nausea and 07/29/23 tablet vomiting #12 tabs ondansetron 4 mg disintegrating 4 mg PO Q8H 7 days #21 tabs 09/14/24 tablet Allergies Allergy/AdvReac Type Severity Reaction Status Date / Time No Known Allergies Allergy Verified 05/28/23 14:07 [facility] <Milena Grajeda (ED), CLERK OPERATOR - Last Filed: 09/14/24 19:30> PFS Disclaimer: The information contained in this section may have been updated after the patient was seen, as this information can be updated by other users. Medical History (Updated 09/14/24 @ 18:51 by Milena Grajeda (ED), CLERK OPERATOR) Asthma Surgical History (Updated 07/29/23 @ 09:37 by Jazmyn Muhammad RN) H/O left wrist surgery History of tympanostomy tube placement History of tonsillectomy Family History Other No significant family history Social History Smoking Status: Current every day smoker tobacco type: e-cigarettes alcohol intake: current alcohol intake frequency: holidays/special occasions only substance use type: denies use current occupational status: other Travel in the last 8 weeks?: Inside the [place] household members: family housing: house Have you lived/traveled outside US in past 30 days?: No Contact w/someone who lives/traveled outside US past 30 days?: No Exposure to someone with infectious disease in past 14 days?: No Do you have a fever (greater than 100.4 F or 38 C)?: No Have you tested positive for COVID-19?: No Exposed to someone with COVID-19 in past 14 days?: No Do you have a sore throat?: No Do you have a cough?: No Do you have any weakness?: No Do you have any diarrhea?: No Are you experiencing any unusual bleeding?: No Do you have any muscle aches/pain?: No Do you have any abdominal pain?: No Are you experiencing loss of taste or smell?: No Other Medical History Have you received the Flu Vaccine for this season: No Have you received the Pneumonia Vaccine: No <Milena Hessarpitaz (ED), CLERK OPERATOR - Last Filed: 09/14/24 19:30> ROS Obtained: Yes Systems reviewed as appropriate & no additional complaints except as documented Constitutional Constitutional: Reports as per HPI Physical Exam <Milena [facility] (ED), CLERK OPERATOR - Last Filed: 09/14/24 19:30> General General appearance: alert Head Head exam: normocephalic Eye Eye exam: Present PERRL and EOMI ENT ENT exam: Present normal oropharynx and mucous membranes moist Neck Neck exam: Present full ROM and trachea midline Respiratory Respiratory exam: Present normal lung sounds bilaterally Cardiovascular Cardiovascular exam: Present regular rate, normal rhythm, normal heart sounds, +S1 and +S2 Extremities Exam Extremities exam: Present full ROM and normal capillary refill Neurological Exam Neurological exam: Present alert, oriented X3 and normal gait Skin Skin exam: Present dry and intact Medical Decision Making <Milena [facility] (ED), CLERK OPERATOR - Last Filed: 09/14/24 19:30> Medical Records Screening: Per USPSTF and CDC recommendations, given the prevalence of disease in our region, it is our hospital?s policy to screen for HIV and viral Hepatitis for all patients aged 18 and over and those with ongoing risk factors. Ilia Inquiry Pt receiving controlled substance: No Ilia was queried for this patient: No Vital Signs: 09/14/24 18:42 09/14/24 18:54 Temperature 97.9 F 97.9 F Temperature Source Oral Oral Pulse Rate 60 Pulse Rate [Radial] 60 Respiratory Rate 18 18 Blood Pressure 156/92 H Blood Pressure [Right Arm] 156/92 H Blood Pressure Mean [Right Arm] 113 Blood Pressure Source Automatic Cuff Blood Pressure Source [Right Arm] Automatic Cuff Blood Pressure Position Sitting Blood Pressure Position [Right Arm] Sitting 02 Sat by Pulse Oximetry 100 Oxygen Delivery Method Room Air Room Air Orders (Tests/Meds): ED MEDICATIONS Discontinued Medications Generic Name Dose Route Start Last Admin Trade Name Freq PRN Reason Stop Dose Admin Lidocaine HCl 15 ml 09/14/24 18:41 09/14/24 18:50 Lidocaine 2% Viscous Jackie 15ml Udc PO 09/14/24 18:42 15 ml ONCE ONE Administration Medical Decision Narrative: patient is a 24-year-old male presenting to the emergency department for evaluation of dental pain. Patient is hemodynamically stable and nontoxic- appearing upon arrival, afebrile. Differential diagnosis includes dental pain. No workup required as this is dental pain and patient does have follow-up with dentist. He is to continue with Tylenol and ibuprofen for pain call the dentist for follow-up if needed before Saturday. Patient safe for discharge. <Erwin Howard MD - Last Filed: 09/14/24 23:20> Vital Signs: 09/14/24 18:42 09/14/24 18:54 Temperature 97.9 F 97.9 F Temperature Source Oral Oral Pulse Rate 60 Pulse Rate [Radial] 60 Respiratory Rate 18 18 Blood Pressure 156/92 H Blood Pressure [Right Arm] 156/92 H Blood Pressure Mean [Right Arm] 113 Blood Pressure Source Automatic Cuff Blood Pressure Source [Right Arm] Automatic Cuff Blood Pressure Position Sitting Blood Pressure Position [Right Arm] Sitting 02 Sat by Pulse Oximetry 100 Oxygen Delivery Method Room Air Room Air Orders (Tests/Meds): ED MEDICATIONS Discontinued Medications Generic Name Dose Route Start Last Admin Trade Name Freq PRN Reason Stop Dose Admin Lidocaine HCl 15 ml 09/14/24 18:41 09/14/24 18:50 Lidocaine 2% Viscous Jackie 15ml Udc PO 09/14/24 18:42 15 ml ONCE ONE Administration Medical Decision Narrative: patient is a 24-year-old male presenting to the emergency department for evaluation of dental pain. Patient is hemodynamically stable and nontoxic- appearing upon arrival, afebrile. Differential diagnosis includes dental pain, periodontitis, periapical abscess. No workup required as this is dental pain and patient does have follow-up with dentist. He is to continue with Tylenol and ibuprofen for pain call the dentist for follow-up if needed before Saturday. Patient safe for discharge. CARLA attestation I was consulted by the CARLA, and we discussed the complexity of problems being addressed. I approved the treatment and management plan for this patient's care in the emergency department, thus performing a substantial portion of the medical decision making. Erwin Howard MD Critical Care <Milena Grajeda (ED), CLERK OPERATOR - Last Filed: 09/14/24 19:30> Critical Care Time Critical Care Time: No
[2024-09-14] MEDS: LIDOCAINE 2% VISCOUS SOL 15ML UDC 15 ML PO (18:50)
[2024-09-14 18:54] VITALS: BP 156/92; PULSE 60; RESP 18; TEMP 36.6; O2SAT 100
== END 2024-09-14 18:58 | disposition home or self-care (01) ==
PROVIDERS: Emergency Provider Student in an Organized Health Care Education/Training Program; PCP Internal Medicine
DX: R11.2 Nausea with vomiting, unspecified (principal); F17.290 Nicotine dependence, other tobacco product, uncomplicated; K08.89 Other specified disorders of teeth and supporting structures
CPT/HCPCS: 99283

== ENCOUNTER 2024-09-16 08:11 | Emergency (ER) | payer OTHER, SELFPAY ==
[2024-09-16 08:18] VITALS: BP 161/117; PULSE 87; RESP 15; TEMP 36.9; O2SAT 99; BMI 28.1
--- OUTSIDE RECORDS SUMMARY | 2024-09-16 08:21 | XMS_ITS | Clinical Summary ---
Author Organization Healthcare Address [address] [place] [address] Care Team Providers Care Metal Welder Name Role Phone Evgeny Mcgrath MD Primary Care Provider [phone] Social History Tobacco Use Types Packs/Day Years [...] of Treatment Not on file Care Teams Metal Welder Relationship Specialty Start Date End Date [facility]gr[facility] [address] [facility] [address] [facility] - [facility] 08/19/20
[2024-09-16 08:22] VITALS: BP 161/117; PULSE 87; RESP 15; TEMP 36.9; O2SAT 99
--- NOTE | 2024-09-16 08:29 | ED_ITS ---
Discharge Plan Disposition Patient Disposition: Home, Self-Care Prescriptions Prescriptions: New amoxicillin-pot clavulanate 875-125 mg tablet 1 tab PO BID 10 Days Qty: 20 0RF No Action ondansetron 4 mg tablet,disintegrating 4 mg PO Q8H 7 Days Qty: 21 0RF ibuprofen [IBU] 800 mg tablet 800 mg PO Q8HP PRN (Reason: Moderate Pain) Qty: 30 0RF qdpkurjjvuxiuvy-owjyeelqh-PA [Bromfed DM] 2-30-10 mg/5 mL Syrup 5 ml PO Q6H PRN (Reason: Cough) Qty: 240 0RF ondansetron 4 mg Tablet,Disintegrating 4 mg PO Q8H PRN (Reason: Nausea) Qty: 12 0RF ondansetron 4 mg tablet,disintegrating 4 mg PO Q8H PRN (Reason: nausea and vomiting) Qty: 12 0RF Referrals Follow up/Referrals: Provider,Referral, MD [Primary Care Provider, Medical] - See instructions Activity Restrictions/Add. Instructions Additional Instructions/Restrictions: Urgent Care Clinic REGISTRATION IS NOT A GUARANTEE OF CARE Location:?[facility], [address] [place] [address] Phone Number:?[phone] [facility] is a walk-in clinic for patients, 14 years of age and older, needing immediate care due to dental pain and swelling.?The [facility]gent [facility] is a student clinic. Patient evaluations and examinations are?carried out by dental students under the supervisions of expert [facility] dentists. Urgent Care Clinic?Registration Hours * *Clinic registration is open 7:45-10:30 am, Saturday through Saturday (closed on holidays and other dates-see below). * Patients are seen on a first come, first served basis and may experience wait times. Services are only available for a select number of patients each day.? IMPORTANT REGISTRATION NOTE:?Registration hours are subject to close early if the clinic reaches full patient capacity for the day. Important Urgent Care Clinic Facts: * IV SEDATION & NITROUS OXIDE (laughing gas) are not available treatment options[place]at the [facility]. * Procedures and provided care limited to one tooth. * No removal of impacted wisdom teeth. * No comprehensive dental treatment (restorations, root canals, crowns, dentures, etc.). * If there is no sign of acute infection or pain, you will be referred to another dental clinic to establish care.? * If, upon evaluation, the scope of the patient's needs are beyond the capabilities of the dental student providers, treatment will be referred to another clinic.? Payment Details * A $129 evaluation fee, which includes an examination and X-ray, is due upon registration for non-contracted?/ self-paid patient. * An additional payment will be required at time of service depending on treatment provided and any contracted?insurance benefits for all patient categories (including?non-contracted?/ self-paid patient). * Dentistry accepts check, money order, VISA, MasterCard, Discover, and [employer]. * Learn more [email or web address] [phone] [facility] Closure Dates *Dates are subject to change. Please check our Facebook page for closure notices.? 2024? * August 14 * August 19 * August 21 * August 26 * August 28 * August 31?? * September 02 * September 04 * September 09 * September 11 For dental emergencies when other clinic options are closed, call [phone]. Clinical Impressions Clinical Impression: Infected dental caries, Pain, dental Print Language Print Language: Korean Discharge ED Provider: Ami Mejia General Adult HPI General Chief complaint: Dental/Oral Stated complaint: tooth pain Time Seen by Provider: 09/16/24 08:14 Mode of Arrival: Ambulatory Source of Information: Patient Description of Symptoms (Recalled from ER Triage Doc. by RN): patient states he has had a toothache on right top and bottom for several days is wanting antibiotics and something for pain. cant get into dentist until october 07 History of Present Illness HPI narrative: Patient is a 24-year-old male with a history of very poor dentition and known dental caries was here a few days ago for dental pain but presents with worsening swelling and worsening pain. Has a dental appointment that has been made with his dentist but cannot get into be seen until October 07. He is here for some pain relief primarily. States that his sister had something similar and had a shot where she felt much better. Related Data Previous Rx's ?Medication ?Instructions ?Recorded tfobpvvlylwpkbo-oefqxnimanutozu-VE 5 ml PO Q6H PRN Cou gh #240 mL 05/28/23 2 mg-30 mg-10 mg/5 mL oral syrup (Bromfed DM) ibuprofen 800 mg tablet (IBU) 800 mg PO Q8HP PRN Moder ate Pain 05/28/23 #30 tabs ondansetron 4 mg disintegrating 4 mg PO Q8H PRN Nausea #12 tabs 05/28/23 tablet ondansetron 4 mg disintegrating 4 mg PO Q8H PRN nausea and 07/29/23 tablet vomiting #12 tabs ondansetron 4 mg disintegrating 4 mg PO Q8H 7 days #21 tabs 09/14/24 tablet amoxicillin 875 mg-potassium 1 tab PO BID 10 days #20 tabs 09/16/24 clavulanate 125 mg tablet Allergies Allergy/AdvReac Type Severity Reaction Status Date / Time No Known Allergies Allergy Verified 05/28/23 14:07 PFS PFS Disclaimer: The information contained in this section may have been updated after the patient was seen, as this information can be updated by other users. Medical History (Updated 09/16/24 @ 08:26 by Ami Mejia MD) Asthma Surgical History (Updated 07/29/23 @ 09:37 by Jazmyn Muhammad RN) H/O left wrist surgery History of tympanostomy tube placement History of tonsillectomy Family History Other No significant family history Social History Smoking Status: Current every day smoker tobacco type: e-cigarettes alcohol intake: current alcohol intake frequency: holidays/special occasions only substance use type: denies use current occupational status: other Travel in the last 8 weeks?: [place] the [place] household members: family housing: house Have you lived/traveled outside US in past 30 days?: No Contact w/someone who lives/traveled outside US past 30 days?: No Exposure to someone with infectious disease in past 14 days?: No Do you have a fever (greater than 100.4 F or 38 C)?: No Have you tested positive for COVID-19?: No Exposed to someone with COVID-19 in past 14 days?: No Do you have a sore throat?: No Do you have a cough?: No Do you have any weakness?: No Do you have any diarrhea?: No Are you experiencing any unusual bleeding?: No Do you have any muscle aches/pain?: No Do you have any abdominal pain?: No Are you experiencing loss of taste or smell?: No Other Medical History Have you received the Flu Vaccine for this season: No Have you received the Pneumonia Vaccine: No ROS Obtained: Yes All systems reviewed & no additional complaints except as documented Physical Exam General General appearance: alert and in no apparent distress ENT ENT exam: Present other (Extensive dental caries particularly in the mandibular molar region there is an area of significant necrotic dental caries with some soft tissue swelling surrounding this also on the maxillary canine and central incisor region there is also evidence of some dental caries that have become necrotic) Respiratory Respiratory exam: Present normal lung sounds bilaterally Cardiovascular Cardiovascular exam: Present regular rate Neurological Exam Neurological exam: Present alert and oriented X3 Medical Decision Making Medical Records Screening: Per USPSTF and CDC recommendations, given the prevalence of disease in our region, it is our hospital?s policy to screen for HIV and viral Hepatitis for all patients aged 18 and over and those with ongoing risk factors. Ilia Inquiry Pt receiving controlled substance: No Vital Signs: 09/16/24 08:18 Temperature 98.4 F Temperature Source Oral Pulse Rate [Right Radial] 87 Respiratory Rate 15 Blood Pressure [Right Arm] 161/117 H Blood Pressure Mean [Right Arm] 131 Blood Pressure Source [Right Arm] Automatic Cuff Blood Pressure Position [Right Arm] Sitting 02 Sat by Pulse Oximetry 99 Oxygen Delivery Method Room Air Orders (Tests/Meds): ORDERS Category Date Time Status HIV Combo Stat Lab 09/16/24 08:24 Ordered Hepatitis C Ab Qual. W/ RFX Stat Lab 09/16/24 08:24 Ordered Medical Decision Narrative: 24-year-old with very poor dentition with extensive dental caries and 2 areas of necrotic dental caries particular in the mandibular molar region with soft tissue swelling consistent with a probable infection. Augmentin was sent to his pharmacy. I performed an inferior alveolar block and an infraorbital block with complete pain resolution of the patient's symptoms. He has been advised to continue Tylenol and ibuprofen take his antibiotics he is also been given dental clinic walk-in information at [facility]. Patient was discharged in stable condition. Procedures Nerve Block Nerve Block 1: Time out performed: Yes Local Anesthetic: lidocaine 1% and bupivacaine 0.5% Amount of anesthesia used (mL): 3 Side: Right Intraoral Nerve Block: inferior alveolar Procedure Successful: Yes Patient Tolerated Procedure: well Complications: none Nerve Block 2: Local Anesthetic: lidocaine 1% and bupivacaine 0.5% Amount of anesthesia used (mL): 2 Side: Right Intraoral Nerve Block: supraperiosteal and other (And infraorbital) Procedure Successful: Yes Patient Tolerated Procedure: well Complications: none Critical Care Critical Care Time Critical Care Time: No
[2024-09-16 08:32] VITALS: BP 161/117; PULSE 87; RESP 15; TEMP 36.9
[2024-09-16] MEDS: LIDOCAINE 1% W/EPI 1:100,000 20ML VIAL 5 ML IM (08:37)
[2024-09-16] MEDS: BUPIVACAINE 0.5% 30ML VIAL 5 MG IM (08:37)
== END 2024-09-16 08:35 | disposition home or self-care (01) ==
PROVIDERS: Emergency Provider Student in an Organized Health Care Education/Training Program
DX: K08.89 Other specified disorders of teeth and supporting structures (principal)
CPT/HCPCS: 96372; 99283; J0665; J2004

== ENCOUNTER 2024-09-28 03:52 | Emergency (ER) | payer OTHER, SELFPAY ==
--- NOTE | 2024-09-28 03:56 | ED_ITS ---
Discharge Plan Disposition Patient Disposition: Home, Self-Care Prescriptions Prescriptions: New amoxicillin-pot clavulanate 875-125 mg tablet 1 tab PO BID 7 Days Qty: 14 0RF No Action ondansetron 4 mg tablet,disintegrating 4 mg PO Q8H 7 Days Qty: 21 0RF ibuprofen [IBU] 800 mg tablet 800 mg PO Q8HP PRN (Reason: Moderate Pain) Qty: 30 0RF idosvsnigfahhgf-mdwdiyaia-HY [Bromfed DM] 2-30-10 mg/5 mL Syrup 5 ml PO Q6H PRN (Reason: Cough) Qty: 240 0RF ondansetron 4 mg Tablet,Disintegrating 4 mg PO Q8H PRN (Reason: Nausea) Qty: 12 0RF ondansetron 4 mg tablet,disintegrating 4 mg PO Q8H PRN (Reason: nausea and vomiting) Qty: 12 0RF amoxicillin-pot clavulanate 875-125 mg tablet 1 tab PO BID 10 Days Qty: 20 0RF Activity Restrictions/Add. Instructions Additional Instructions/Restrictions: I sent additional antibiotics to continue taking if your dental pain continues. Clinical Impressions Clinical Impression: Pain, dental Print Language Print Language: Urdu Discharge ED Provider: Jose A Gomez General Adult HPI General Chief complaint: PAIN Stated complaint: Toothache Time Seen by Provider: 09/28/24 03:56 History of Present Illness HPI narrative: 24-year-old male with history of recent ED visit for dental pain presents for continued dental pain. He reports that he has been taking antibiotics and has a couple days left, but his tooth pain is starting to worsen again. He requests a dental block. He has follow-up with dentistry on October 07. Related Data Previous Rx's ?Medication ?Instructions ?Recorded lnrfharyigsafdb-vznvvxnftwayoap-WO 5 ml PO Q6H PRN Cou gh #240 mL 05/28/23 2 mg-30 mg-10 mg/5 mL oral syrup (Bromfed DM) ibuprofen 800 mg tablet (IBU) 800 mg PO Q8HP PRN Moder ate Pain 05/28/23 #30 tabs ondansetron 4 mg disintegrating 4 mg PO Q8H PRN Nausea #12 tabs 05/28/23 tablet ondansetron 4 mg disintegrating 4 mg PO Q8H PRN nausea and 07/29/23 tablet vomiting #12 tabs ondansetron 4 mg disintegrating 4 mg PO Q8H 7 days #21 tabs 09/14/24 tablet amoxicillin 875 mg-potassium 1 tab PO BID 10 days #20 tabs 09/16/24 clavulanate 125 mg tablet amoxicillin 875 mg-potassium 1 tab PO BID 7 days #14 t abs 09/28/24 clavulanate 125 mg tablet Allergies Allergy/AdvReac Type Severity Reaction Status Date / Time No Known Allergies Allergy Verified 05/28/23 14:07 [facility] Disclaimer: The information contained in this section may have been updated after the patient was seen, as this information can be updated by other users. Medical History (Updated 09/28/24 @ 03:56 by Jose A Gomez MD) Asthma Surgical History (Updated 07/29/23 @ 09:37 by Jazmyn Muhammad RN) H/O left wrist surgery History of tympanostomy tube placement History of tonsillectomy Family History Other No significant family history Social History Smoking Status: Current every day smoker tobacco type: e-cigarettes alcohol intake: current alcohol intake frequency: holidays/special occasions only substance use type: denies use current occupational status: other Travel in the last 8 weeks?: Inside the [place] household members: family housing: house Have you lived/traveled outside US in past 30 days?: No Contact w/someone who lives/traveled outside US past 30 days?: No Exposure to someone with infectious disease in past 14 days?: No Do you have a fever (greater than 100.4 F or 38 C)?: No Have you tested positive for COVID-19?: No Exposed to someone with COVID-19 in past 14 days?: No Do you have a sore throat?: No Do you have a cough?: No Do you have any weakness?: No Do you have any diarrhea?: No Are you experiencing any unusual bleeding?: No Do you have any muscle aches/pain?: No Do you have any abdominal pain?: No Are you experiencing loss of taste or smell?: No Other Medical History Have you received the Flu Vaccine for this season: No Have you received the Pneumonia Vaccine: No ROS Obtained: Yes All systems reviewed & no additional complaints except as documented Physical Exam General General appearance: alert and in no apparent distress Head Head exam: atraumatic and normocephalic Eye Eye exam: Present normal appearance, PERRL and EOMI ENT ENT exam: Present normal external ear exam and other (Numerous dental caries noted, no palpable abscess) Neck Neck exam: Present normal inspection and full ROM Chest Chest inspection: Present normal inspection and symmetric chest wall rise; Absent tenderness Respiratory Respiratory exam: Present normal lung sounds bilaterally; Absent respiratory distress Cardiovascular Cardiovascular exam: Present regular rate and normal rhythm Abdominal Exam Abdominal exam: Present soft; Absent distention, tenderness or guarding Extremities Exam Extremities exam: Present normal inspection; Absent edema or joint swelling Back Exam Back exam: Present normal inspection; Absent tenderness Neurological Exam Neurological exam: Present alert and oriented X3; Absent motor sensory deficit Psychiatric Psychiatric exam: Present normal affect and normal mood Skin Skin exam: Present warm, dry and normal color Lymphatic Lymphatic Findings: no adenopathy Medical Decision Making Medical Records Medical records reviewed: Yes I reviewed the patient's medical records. Screening: Per USPSTF and CDC recommendations, given the prevalence of disease in our region, it is our hospital?s policy to screen for HIV and viral Hepatitis for all patients aged 18 and over and those with ongoing risk factors. Ilia Inquiry Pt receiving controlled substance: No Ilia was queried for this patient: No Vital Signs: 09/28/24 03:58 09/28/24 04:16 Temperature 97.7 F 97.7 F Temperature Source Axillary Axillary Pulse Rate 60 Pulse Rate [Right] 60 Respiratory Rate 18 18 Blood Pressure 163/97 H Blood Pressure [Right Arm] 163/97 H Blood Pressure Mean [Right Arm] 119 Blood Pressure Source Automatic Cuff Blood Pressure Position Sitting 02 Sat by Pulse Oximetry 100 Oxygen Delivery Method Room Air Room Air Lab Data Lab results reviewed: Yes I reviewed the patient's lab results. Medical Decision Narrative: 24-year-old male on antibiotics for dental pain, has not been able to follow-up with dentistry yet, presents for continued pain. History was obtained via interactive discussion with patient, chart review. On arrival, patient is [afebrile, hemodynamically stable, satting appropriately, alert, oriented x4, GCS 15], moving all extremities spontaneously. Full physical exam performed and significant for dental caries, no intraoral abscess Differential includes but is not limited to dental infection, Suyapa's, Lemierre's, abscess. No evidence of emergent pathology at this time. Patient was given a dental block with resolution in pain. He was discharged with an additional prescription for antibiotics to cover him until he follows up with dentistry next week. Procedures Risk/Benefits of Procedure(s) Were Explained: Yes Nerve Block Nerve Block 1: Time out performed: Yes Local Anesthetic: lidocaine 1% and with epi Amount of anesthesia used (mL): 6 Side: Right Intraoral Nerve Block: superior alveolar and inferior alveolar Critical Care Critical Care Time Critical Care Time: No
[2024-09-28 03:58] VITALS: BP 163/97; PULSE 60; RESP 18; TEMP 36.5; O2SAT 100; BMI 29.0
--- OUTSIDE RECORDS SUMMARY | 2024-09-28 03:58 | XMS_ITS | Clinical Summary ---
Author Organization Healthcare Address [address] [place] [address] Care Team Providers Care Venetian Blind Assembler Name Role Phone Evgeny Mcgrath MD Primary Care Provider [phone] Social History Tobacco Use Types Packs/Day Years [...] of Treatment Not on file Care Teams Venetian Blind Assembler Relationship Specialty Start Date End Date Evgen[facility] Mcgrath [facility] [address] [facility] [address] PCP - General 08/19/20
[2024-09-28 04:16] VITALS: BP 163/97; PULSE 60; RESP 18; TEMP 36.5; O2SAT 100
== END 2024-09-28 04:18 | disposition home or self-care (01) ==
PROVIDERS: Emergency Provider Emergency Medicine
DX: K08.89 Other specified disorders of teeth and supporting structures (principal); F17.290 Nicotine dependence, other tobacco product, uncomplicated
CPT/HCPCS: 99283

== ENCOUNTER 2024-11-14 11:39 | Emergency (ER) | payer MEDICAID, SELFPAY ==
[2024-11-14 11:44] VITALS: BP 145/82; PULSE 69; RESP 18; TEMP 36.7; O2SAT 100; BMI 29.7
--- OUTSIDE RECORDS SUMMARY | 2024-11-14 12:03 | XMS_ITS | Clinical Summary ---
Author Organization Healthcare Address [address] [place] [address] Care Team Providers Care Professor Of Social Work Name Role Phone Evgeny Mcgrath MD Primary Care Provider [phone] Social History Tobacco Use Types Packs/Day Years [...] of Treatment Not on file Care Teams Professor Of Social Work Relationship Specialty Start Date End Date [facility] [address] [facility] [address] [facility] - [facility] 08/19/20
--- NOTE | 2024-11-14 12:14 | HMH.EDGENADL ---
Discharge Plan Disposition Patient Disposition: Home, Self-Care Prescriptions Prescriptions: New clindamycin HCl [Cleocin HCl] 300 mg capsule 300 mg PO BID 7 Days Qty: 14 0RF No Action ondansetron 4 mg tablet,disintegrating 4 mg PO Q8H 7 Days Qty: 21 0RF amoxicillin-pot clavulanate 875-125 mg tablet 1 tab PO BID 7 Days Qty: 14 0RF ibuprofen [IBU] 800 mg tablet 800 mg PO Q8HP PRN (Reason: Moderate Pain) Qty: 30 0RF bcpjpkdyucfewpr-iimeshjrl-OF [Bromfed DM] 2-30-10 mg/5 mL Syrup 5 ml PO Q6H PRN (Reason: Cough) Qty: 240 0RF ondansetron 4 mg Tablet,Disintegrating 4 mg PO Q8H PRN (Reason: Nausea) Qty: 12 0RF ondansetron 4 mg tablet,disintegrating 4 mg PO Q8H PRN (Reason: nausea and vomiting) Qty: 12 0RF amoxicillin-pot clavulanate 875-125 mg tablet 1 tab PO BID 10 Days Qty: 20 0RF Referrals Follow up/Referrals: Provider,Referral, MD [Primary Care Provider, Medical] - See instructions Activity Restrictions/Add. Instructions Additional Instructions/Restrictions: Increase fluids and rest. May do ice or heat to the area. Do salt water gargles to help as well. May take ibuprofen and Tylenol. Ibuprofen is every 6-8 hours. Tylenol is every 4 hours. Take the antibiotic as directed. See the dentist on Saturday. Clinical Impressions Clinical Impression: Dental caries, Dental abscess Instructions Patient Instructions: DI for Dental Pain Print Language Print Language: Romanian Discharge ED Provider: Karl Mojica General Adult HPI <Milena Grajeda (ED), [employer] - Last Filed: 11/14/24 12:54> General Chief complaint: Dental/Oral Stated complaint: tooth pain L side , swelling L side of face Time Seen by Provider: 11/14/24 11:58 Mode of Arrival: Ambulatory Description of Symptoms (Recalled from ER Triage Doc. by RN): patient arrived to ED for dental pain, pain is occuring on hte left upper side. noticeable swelling in hte left portion of his face below his left eye. rating pain 5/10 currently. patient states he has a dental appointment saturday. History of Present Illness HPI narrative: 24-year-old male presents to the ED today for left upper gum pain due to a tooth that is bad. He has been jvib-vbn-raxei to the dentist over the last month or more for several dental problems. He has a dentist appointment on Saturday. He does have some noticeable swelling in his left side of his face. He is asking for a numbing injection here just to help for the pain for a short amount of time. He has no drainage coming from this. He has no fevers or chills. No nausea, vomiting or diarrhea. No systemic signs of infection. No other symptoms today. Related Data Previous Rx's ?Medication ?Instructions ?Recorded chrqredzzukeqea-qploxqobdspdzpq-PH 5 ml PO Q6H PRN Cough #240 mL 05/28/23 2 mg-30 mg-10 mg/5 mL oral syrup (Bromfed DM) ibuprofen 800 mg tablet (IBU) 800 mg PO Q8HP PRN Moderate Pain 05/28/23 #30 tabs ondansetron 4 mg disintegrating 4 mg PO Q8H PRN Nausea #12 tabs 05/28/23 tablet ondansetron 4 mg disintegrating 4 mg PO Q8H PRN nausea and 07/29/23 tablet vomiting #12 tabs ondansetron 4 mg disintegrating 4 mg PO Q8H 7 days #21 tabs 09/14/24 tablet amoxicillin 875 mg-potassium 1 tab PO BID 10 days #20 tabs 09/16/24 clavulanate 125 mg tablet amoxicillin 875 mg-potassium 1 tab PO BID 7 days #14 tabs 09/28/24 clavulanate 125 mg tablet clindamycin HCl 300 mg capsule 300 mg PO BID 7 days #14 caps 11/14/24 (Cleocin HCl) Allergies Allergy/AdvReac Type Severity Reaction Status Date / Time No Known Allergies Allergy Verified 05/28/23 14:07 [facility] <Milena Grajeda ([place]), [employer] - Last Filed: 11/14/24 12:54> [facility] Disclaimer: The information contained in this section may have been updated after the patient was seen, as this information can be updated by other users. Medical History (Updated 11/14/24 @ 12:35 by Milena Grajeda (ED), [employer]) Asthma Surgical History (Updated 07/29/23 @ 09:37 by Jazmyn Muhammad RN) H/O left wrist surgery History of tympanostomy tube placement History of tonsillectomy Family History Other No significant family history Social History Smoking Status: Current every day smoker tobacco type: e-cigarettes alcohol intake: current alcohol intake frequency: holidays/special occasions only substance use type: denies use current occupational status: other Travel in the last 8 weeks?: Inside the [place] household members: family housing: house Have you lived/traveled outside US in past 30 days?: No Contact w/someone who lives/traveled outside US past 30 days?: No Exposure to someone with infectious disease in past 14 days?: No Do you have a fever (greater than 100.4 F or 38 C)?: No Have you tested positive for COVID-19?: No Exposed to someone with COVID-19 in past 14 days?: No Do you have a sore throat?: No Do you have a cough?: No Do you have any weakness?: No Do you have any diarrhea?: No Are you experiencing any unusual bleeding?: No Do you have any muscle aches/pain?: No Do you have any abdominal pain?: No Are you experiencing loss of taste or smell?: No Other Medical History Have you received the Flu Vaccine for this season: No Have you received the Pneumonia Vaccine: No <Milean Grajeda (ED), [employer] - Last Filed: 11/14/24 12:54> ROS Obtained: Yes Systems reviewed as appropriate & no additional complaints except as documented Constitutional Constitutional: Reports as per HPI Physical Exam <Milena Grajeda (ED), [employer] - Last Filed: 11/14/24 12:54> General General appearance: alert and in no apparent distress Head Head exam: normocephalic Eye Eye exam: Present PERRL and EOMI ENT ENT exam: Present normal oropharynx and mucous membranes moist Neck Neck exam: Present full ROM and trachea midline Respiratory Respiratory exam: Present normal lung sounds bilaterally Cardiovascular Cardiovascular exam: Present regular rate, normal rhythm, normal heart sounds, +S1 and +S2 Extremities Exam Extremities exam: Present normal inspection, full ROM and normal capillary refill Neurological Exam Neurological exam: Present alert and oriented X3 Skin Skin exam: Present warm, dry and erythema (Left cheek has some mild erythema) Medical Decision Making <Milena Grajeda (ED), [employer] - Last Filed: 11/14/24 12:54> Medical Records Screening: Per USPSTF and CDC recommendations, given the prevalence of disease in our region, it is our hospital?s policy to screen for HIV and viral Hepatitis for all patients aged 18 and over and those with ongoing risk factors. Ilia Inquiry Pt receiving controlled substance: No Ilia was queried for this patient: No Vital Signs: 11/14/24 11:44 11/14/24 12:45 Temperature 98.0 F 98.2 F Temperature Source Temporal Artery Scan Temporal Artery Scan Pulse Rate 59 L Pulse Rate [Right Brachial] 69 Respiratory Rate 18 20 Blood Pressure 131/81 Blood Pressure [Right Arm] 145/82 H Blood Pressure Mean [Right Arm] 103 Blood Pressure Source Automatic Cuff Blood Pressure Source [Right Arm] Automatic Cuff Blood Pressure Position Sitting Blood Pressure Position [Right Arm] Sitting 02 Sat by Pulse Oximetry 100 Oxygen Delivery Method Room Air Room Air Orders (Tests/Meds): ED MEDICATIONS Discontinued Medications Generic Name Dose Route Start Last Admin Trade Name Freq PRN Reason Stop Dose Admin Lidocaine HCl 15 ml 11/14/24 12:06 11/14/24 12:23 Lidocaine 2% Viscous Jackie 15ml Udc PO 11/14/24 12:07 15 ml ONCE ONE Administration Lidocaine/Epinephrine 20 ml 11/14/24 12:21 11/14/24 12:23 Lidocaine 1% W/Epi 1:100,000 20ml Vial IM 11/14/24 12:22 20 ml ONCE ONE Administration Medical Decision Narrative: patient is a 24-year-old male presenting to the emergency department for evaluation of left sided dental pain. Patient is hemodynamically stable and nontoxic-appearing upon arrival, afebrile. Differential diagnosis includes dental pain, abscess, dental caries among others. After looking at the tooth in the left upper it does look like some mild redness around that tooth. He does have some mild swelling in his face. He has no systemic signs of infection so I feel comfortable giving him antibiotics and with his dentist appointment on Saturday I feel okay giving him a numbing shot for comfort. Patient has quick follow-up. We discussed return precautions. If patient has fever or increased swelling he is to return to the ED immediately. <Karl Mojica MD - Last Filed: 11/14/24 13:16> Vital Signs: 11/14/24 11:44 11/14/24 12:45 Temperature 98.0 F 98.2 F Temperature Source Temporal Artery Scan Temporal Artery Scan Pulse Rate 59 L Pulse Rate [Right Brachial] 69 Respiratory Rate 18 20 Blood Pressure 131/81 Blood Pressure [Right Arm] 145/82 H Blood Pressure Mean [Right Arm] 103 Blood Pressure Source Automatic Cuff Blood Pressure Source [Right Arm] Automatic Cuff Blood Pressure Position Sitting Blood Pressure Position [Right Arm] Sitting 02 Sat by Pulse Oximetry 100 Oxygen Delivery Method Room Air Room Air Orders (Tests/Meds): ED MEDICATIONS Discontinued Medications Generic Name Dose Route Start Last Admin Trade Name Joanna PRN Reason Stop Dose Admin Lidocaine HCl 15 ml 11/14/24 12:06 11/14/24 12:23 Lidocaine 2% Viscous Jackie 15ml Udc PO 11/14/24 12:07 15 ml ONCE ONE Administration Lidocaine/Epinephrine 20 ml 11/14/24 12:21 11/14/24 12:23 Lidocaine 1% W/Epi 1:100,000 20ml Vial IM 11/14/24 12:22 20 ml ONCE ONE Administration Medical Decision Narrative: patient is a 24-year-old male presenting to the emergency department for evaluation of left sided dental pain. Patient is hemodynamically stable and nontoxic-appearing upon arrival, afebrile. Differential diagnosis includes dental pain, abscess, dental caries among others. After looking at the tooth in the left upper it does look like some mild redness around that tooth. He does have some mild swelling in his face. He has no systemic signs of infection so I feel comfortable giving him antibiotics and with his dentist appointment on Saturday I feel okay giving him a numbing shot for comfort. Patient has quick follow-up. We discussed return precautions. If patient has fever or increased swelling he is to return to the ED immediately. I was consulted by the CARLA, and we discussed the complexity of the problems being addressed. I approve the treatment and management plan for this patient's care in the emergency department, thus performing a substantive portion of the medical decision making. Karl Mojica MD Procedures <Milena Grajeda (ED), [employer] - Last Filed: 11/14/24 12:54> Miscellaneous Procedure Procedure Performed: dental block competed with lidocaine 1% Critical Care <Milena Grajeda (ED), [employer] - Last Filed: 11/14/24 12:54> Critical Care Time Critical Care Time: No
[2024-11-14] MEDS: LIDOCAINE 2% VISCOUS SOL 15ML UDC 15 ML PO (12:23)
[2024-11-14] MEDS: LIDOCAINE 1% W/EPI 1:100,000 20ML VIAL 20 ML IM (12:23)
[2024-11-14 12:45] VITALS: BP 131/81; PULSE 59; RESP 20; TEMP 36.8; O2SAT 99
== END 2024-11-14 12:46 | disposition home or self-care (01) ==
PROVIDERS: Emergency Provider Student in an Organized Health Care Education/Training Program
DX: R22.0 Localized swelling, mass and lump, head (principal); K08.89 Other specified disorders of teeth and supporting structures; F17.290 Nicotine dependence, other tobacco product, uncomplicated
CPT/HCPCS: 99283; J2004